=== PATIENT | female | born 1975 | race Caucasian/White ===

== ENCOUNTER 2018-06-04 10:57 | Emergency (ER) | payer OTHER ==
[~2018-06-04] VITALS: Ht 157.5 cm; Wt 57.2 kg
[2018-06-04 11:01] VITALS: BP 120/82; PULSE 87; RESP 20; Ht 157.5 cm; Wt 57.2 kg
--- NOTE | 2018-06-04 13:37 | ERD ---
ER Documentation Chief Complaint Chief Complaint Complaon sof a dog bite x 3 days HPI 43-year-old female, right-handed, presents to the emergency department, complaining of two dog bites on the left forearm after petting an unknown pitbull dog at a park. According to the patient, the dog has vaccines up-to-date. The patient denies any distal weakness, numbness or tingling. After the incident she irrigated the wound with alcohol and peroxide. ROS All systems reviewed and are negative except as per history of present illness. Medications Home Meds Active Scripts Ibuprofen* (Motrin*) 600 Mg Tab, 600 MG PO Q8, #15 TAB Prov:GRIS WILKINS MD 06/04/18 Amoxicillin/Potassium Clav (Amox-Clav 875-125 mg Tablet) 875-125 mg Tab, 1 TAB PO BID for 7 Days, #14 TAB Prov:GRIS WILKINS MD 06/04/18 Allergies Allergies: Coded Allergies: No Known Allergy (Unverified , 06/04/18) PMhx/Soc History of Surgery: Yes ("intestional surgery") Anesthesia Reaction: No Hx Neurological Disorder: No Hx Respiratory Disorders: No Hx Cardiac Disorders: No Hx Psychiatric Problems: No Hx Miscellaneous Medical Probl: No Hx Alcohol Use: Yes (social) Hx Substance Use: No Hx Tobacco Use: Yes Smoking Status: Current every day smoker FmHx Family History: No diabetes, No coronary disease Physical Exam Vitals Vital Signs Date Temp Pulse Resp B/P (MAP) Pulse Ox O2 O2 Flow FiO2 Time Delivery Rate 06/04/18 98.7 87 20 120/82 96 11:01 (95) Physical Exam Const: No acute distress Head: Atraumatic Eyes: Normal Conjunctiva ENT: Normal External Ears, Nose and Mouth. Neck: Full range of motion. No meningismus. Resp: Clear to auscultation bilaterally Cardio: Regular rate and rhythm, no murmurs Abd: Soft, non tender, non distended. Normal bowel sounds Skin: Left forearm: 1 anterior laceration approximately 3 cm, no foreign body seen, no vascular, tendon or nerve injury. Second injury on the dorsal aspect of the forearm, 1 cm, no foreign body seen. Back: No midline or flank tenderness Ext: No cyanosis, or edema Neur: Awake and alert Psych: Normal Mood and Affect Results 24 hrs Current Medications Medications Dose Sig/Nicole Start Time Status Last (Trade) Ordered Route PRN Stop Time Admin Dose Reason Admin Diphtheria/ 0.5 ml ONCE ONCE 06/04/18 DC 06/04/18 Tetanus/Acell IM* 14:00 06/04/18 13:41 Pertussis 14:01 (Adacel) Procedures/MDM Vital signs stable, Low suspicion for foreign body, tendon laceration, nerve damage, cellulitis, erysipelas, abscess. Physical examination and clinical presentation consistent most likely with dog bite of the left forearm without evidence of infection. During the ED course the patient remained stable, no new complaints. The wound was irrigated and left open and for a secondary intention closure. The patient is stable to be treated outpatient and will be discharged home with a Rx for antibiotics, anti-inflammatories and pain medications, some side effects of prescribed medications (headache, rash, nausea, vomiting, diarrhea, drowsiness, habituation, bleeding, hypertension, interactions with other medications) were reviewed. Instructions explained and given directly by me to the patient and relatives with acknowledgment and demonstrated understanding. Disclaimer: Inadvertent spelling and grammatical errors are likely due to EHR/dictation software use and do not reflect on the overall quality of patient care. Also, please note that the electronic time recorded on this note does not necessarily reflect the actual time of the patient encounter. Departure Diagnosis: Primary Impression: Dog bite of left upper extremity Condition: Stable Additional Instructions: Muchas power por [facility] para mcghee servicio. Esperamos que en mcghee visita a la erasmo de emergencia mcghee problema medico haya sido solucionado y que se sienta mucho mejor. Para estar seguros que mcghee mejoria sigue en proceso, le pedimos el favor de hacer jenny shazia de seguimiento medico con mcg[place] doctor primario en los proximos 2-4 quach. Lleve con usted estos documentos y las medicinas recetadas. Si niki sintomas empeoran, NO SE ESPERE, por favor regrese a erasmo de emergencia I NMEDIATAMENTE. En gianna que usted no tenga un mdico de atencin primaria: Llame al mdico o clnica comunitaria de referencia que aparece abajo obdulio las horas de consultorio para hacer jenny shazia para que le vean. CLINICAS: [facility] [phone] [facility] [phone] [facility] [phone] [place] [id number] [phone] [place] [phone] [facility]. [phone] GRIS MCKINNON MD Jun 04, 2018 13:37
[2018-06-04] MEDS ORDERED: IBUP-1542 PO (13:39)
[2018-06-04] MEDS ORDERED: AMOX1TAB10 PO (13:39)
[2018-06-04] MEDS ORDERED: DIPHTH/TET/ACEL PERTUSS (ADULT) 0.5 ML VIAL IM* ONE (14:00)
== END 2018-06-04 14:59 | disposition home or self-care (01) ==
LOC: FTE 10:57
DX: S41.152A Open bite of left upper arm, initial encounter (principal); F17.210 Nicotine dependence, cigarettes, uncomplicated; W54.0XXA Bitten by dog, initial encounter; Y92.9 Unspecified place or not applicable; Z23 Encounter for immunization
CPT/HCPCS: 90471; 90715